=== PATIENT | male | born 1985 | race Caucasian/White ===

== ENCOUNTER 2018-11-15 15:53 | Emergency (ER) | payer BC, OTHER ==
[~2018-11-15] VITALS: Ht 188 cm; Wt 137.0 kg
[2018-11-15] MEDS ORDERED: IBUPROFEN 200 MG TABLET PO ONE (16:30)
[2018-11-15] MEDS ORDERED: IBUPROFEN 200 MG TABLET ONE ×2 (17:01→17:02)
[2018-11-15 19:26] VITALS: BP 150/95
== END 2018-11-15 19:28 | disposition home or self-care (01) ==
LOC: ED 18:11
DX: M25.572 Pain in left ankle and joints of left foot (principal); I10 Essential (primary) hypertension
CPT/HCPCS: 36415; 84550; 99284